=== PATIENT | male | born 1970 | race African-American/Black ===

== ENCOUNTER 2022-12-14 18:56 | Emergency (ER) | payer OTHER, SELFPAY ==
[2022-12-14 19:07] VITALS: BP 131/93; PULSE 88; RESP 18; TEMP 37; O2SAT 98; BMI 32.0
--- NOTE | 2022-12-14 19:12 | ED.GENADULT ---
HPI - General Adult General Chief complaint: Wound/Laceration Stated complaint: finger lac while cooking Time Seen by Provider: 12/14/22 22:37 Source: patient Mode of arrival: ambulatory Limitations: no limitations History of Present Illness HPI narrative: 52-year-old male who presents emergency department for evaluation of laceration to the tip of his left 5th finger. Patient states that he was cutting lettuce when he actually slice the tip of his left pinky finger. Patient was able to control the bleeding at home and came to the emergency department for evaluation. He does not know when his last tetanus shot was given but he believes that it was more than 10 years ago. Related Data Allergies Allergy/AdvReac Type Severity Reaction Status Date / Time No Known Allergies Allergy Verified 12/14/22 22:43 Review of Systems Review of Systems: Yes all other systems are reviewed and are negative [facility] Past Medical History Attestation statement: The following information was validated with the patient. [facility] Narrative: Past medical history: None. Social history: Patient is . 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 Denies tobacco, alcohol and drug use. Social History Social History Alcohol intake: current Alcohol intake frequency: a few times a week Alcohol type: beer Smoked in Last 30 Days: Yes Use of substances other than those prescribed or required for medical reasons: No Advance Directives: No Advance Directives Information Provided: No Physical Exam ED Vital Signs: Vital Signs - 24 hr 12/14/22 19:07 12/14/22 22:00 Temperature 98.6 F 97.9 F Pulse Rate 88 80 Respiratory Rate 18 16 Blood Pressure 131/93 H 128/88 Pulse Oximetry 98 100 Oxygen Delivery Method Room Air BMI result Body Mass Index 32.0 Elevated blood pressure General very pleasant and cooperative male patient, no distress Right hand evaluation: Patient has a 2.5 cm C-shaped laceration to the tip of his left 5th finger Course Course Course Narrative: RME: 52 yold male presents to the ED for left finger laceration while cooking. patinet denies any other symptoms or trauma. Medications Administered Discontinued Medications Generic Name Dose Route Start Last Admin Trade Name Freq PRN Reason Stop Dose Admin Bacitracin 1 appl 12/14/22 23:33 12/14/22 23:46 Bacitracin Oint 0.9 Gm Packet TOPICAL 12/14/22 23:34 1 appl ONCE ONE Administration Protocol Diphtheria/Tetanus/Acell Pertussis 0.5 ml 12/14/22 22:43 12/14/22 22:48 Diphth,Pertus(Acell),Tet Adult 0.5 Ml Syringe IM 12/14/22 22:44 0.5 ml .ONCE ONE Administration Lidocaine HCl 5 ml 12/14/22 22:43 12/14/22 22:48 Lidocaine Hcl 1 % Mpf 5 Ml Vial INFILTRATI 12/14/22 22:44 5 ml ONCE STA Administration Lidocaine HCl 5 ml 12/14/22 22:43 12/14/22 22:48 Lidocaine Hcl 1 % Mpf 5 Ml Vial INFILTRATI 12/14/22 22:44 5 ml ONCE ONE Administration Procedures Procedure Narrative Procedure Narrative: 2.5 cm C-shaped, full skin thickness laceration to the tip of the left 5th finger. I did describe the digital block and laceration repair procedure to the patient any did give me informed verbal consent to proceed. The patient's left 5th finger was prepped with Betadine then a digital block with 5 cc of 1% lidocaine was performed. Patient needed a repeat digital block with 5 cc of 1% lidocaine to achieve sufficient anesthesia. The wound was then irrigated with normal saline 500 cc. I explored the wound and no foreign bodies found in the wound the best my ability. The skin was undermined using scissors and the wound was closed in 1 layer using 5.0 nylon sutures x6 sutures. The wound was then covered with bacitracin and a non stick dressing was held in place with Kerlix gauze. Patient tolerated the procedure well. Medical Decision Making Medical Decision Making [facility] Narrative: 52-year-old male who presents emergency department for evaluation of 2.5 cm C-shaped, full skin thickness laceration to the tip of the left 5th finger requiring suture repair. Left 5th finger was prepped with Betadine anesthetized with digital block 5 cc of 1% lidocaine, patient then require repeat digital block with another 5 cc of 1% lidocaine in order to achieve sufficient anesthesia. It was your gated with normal saline 500 cc, explored, no foreign body seen, closed in 1 layer with 5 point nylon sutures x6 sutures. Patient tolerated the procedure well pain. He was given printed and verbal instructions, stitches need to be removed in 7-10 days. She was also given a Tdap vaccination. Differential Diagnosis Differential diagnosis includes but is not limited to laceration, vascular compromise Discharge Plan Discharge Clinical Impression: Laceration of finger of left hand, Need for Tdap vaccination Patient Disposition: Home, Self-Care Instructions: Finger Laceration (ED) Additional Instructions: Your finger was fixed with 6 interrupted stitches The stitches need to stay in for 7-10 days. Apply bacitracin twice a day until the stitches are removed. Watch for signs of infection which would include redness, swelling, increased pain, drainage of pus from the wound, red streaks going down the finger and up the arm, fever or chills. Your stitches can be removed by your doctor, in urgent care clinic or the emergency department. Do not remove them yourself. You received a Tdap (tetanus, diphtheria, Pertussin) vaccination. This is good for 5 years against any contaminated laceration , you will need a booster shot between 6 and 10 year for any contaminated laceration Follow-up with your doctor in 2 days. Please return to the emergency department if your symptoms get worse or if you develop any symptoms that are concerning to you. Interventions: ED Discharge Assessment Last Done: 12/14/22 23:46 Discharge Date/Time: 12/14/22 23:46
[2022-12-14 22:00] VITALS: BP 128/88; PULSE 80; RESP 16; TEMP 36.6; O2SAT 100
== END 2022-12-14 23:46 | disposition home or self-care (01) ==
PROVIDERS: Emergency Provider Emergency Medicine Emergency Medical Services
DX: S61.217A Laceration without foreign body of left little finger without damage to nail, initial encounter (principal); W26.0XXA Contact with knife, initial encounter; Y93.9 Activity, unspecified; Y92.9 Unspecified place or not applicable; Y99.9 Unspecified external cause status; Z79.899 Other long term (current) drug therapy; Z23 Encounter for immunization
CPT/HCPCS: 12041; 90471; 90715; 99284

== ENCOUNTER 2023-06-10 11:24 | Emergency (ER) | payer OTHER, SELFPAY ==
[2023-06-10 11:33] VITALS: BP 124/79; PULSE 82; RESP 20; TEMP 36.2; O2SAT 99; BMI 31.2
--- NOTE | 2023-06-10 11:33 | ED.UPPEXIN ---
HPI - Extremity Injury (Upper) General Chief Complaint: Extremity Injury, Upper Stated Complaint: Shoulder injury 06/05 Time Seen by Provider: 06/10/23 12:11 Source: patient Mode of arrival: ambulatory Limitations: no limitations History of Present Illness HPI narrative: 52-year-old male presents with complaints of right-sided neck and shoulder pain that started on Thursday, 4 days ago status post heavy lifting things at home/work. Patient reports at times he gets right upper extremity numbness and tingling however not always. Pain precipitated by movement and lifting better at rest. Reports that does not seem to be getting better on its own. Denies fevers, chills, headache vision changes, dizziness, weakness, chest pain, shortness of breath, visual disturbances Related Data Previous Rx's Medication Instructions Recorded cyclobenzaprine 10 mg tablet 10 mg PO BEDTIME PRN muscle spasm 06/10/23 #7 tabs ketorolac 10 mg tablet 10 mg PO TID PRN pain 5 days #15 06/10/23 tabs lidocaine 5 % topical patch 1 patch topical DAILY PRN pain #15 06/10/23 ea Allergies Allergy/AdvReac Type Severity Reaction Status Date / Time No Known Allergies Allergy Verified 06/10/23 11:35 Review of Systems Review of Systems: Constitutional : No Weight loss, No Fever, No Chills, No Fatigue, No Malaise ENT/Mouth : No sore throat, No Rhinorrhea Eyes: No Eye Pain, No Swelling, No Redness Cardiovascular : No Chest Pain, No SOB, No Dyspnea on Exertion, No Orthopnea, No Edema, No Palpitations Respiratory : No Cough, No Sputum, No Wheezing Gastrointestinal : No Nausea, No Vomiting, No Diarrhea, No Constipation, No abdominal Pain, No Hematochezia, No Melena Genitourinary : No Dysuria, No Urinary Frequency, No Hematuria, Musculoskeletal : + joint pain, No Myalgias, No Joint Swelling Skin : No Skin Lesions, No rash Neuro : No Weakness, No Numbness, No Dizziness, No Headache Psych : No Anxiety/Panic, No Depression All other systems reviewed and are negative Yes all other systems are reviewed and are negative [facility] Past Medical History Attestation statement: The following information was validated with the patient. Source: old records reviewed and nursing notes reviewed Onset Date is defined in the Problem List Problems that require an onset date and time if occurred within 24 hrs of arrival to the ED Aortic Dissection and Rupture; Neurologic impairment; Cardiopulmonary Arrest; Endotracheal Intubation; Insertion or Replacement of Mechanical Circulatory Assist Device Social History Social History Alcohol intake: current Alcohol intake frequency: a few times a week Alcohol type: beer Advance Directives: No Advance Directives Information Provided: No Physical Exam Vital Signs: Vital Signs: Last Vital Signs Temp 97.2 F 06/10/23 11:33 Pulse 82 06/10/23 11:33 Resp 20 06/10/23 11:33 BP 124/79 06/10/23 11:33 Pulse Ox 99 06/10/23 11:33 O2 Del Method Room Air 06/10/23 11:33 BMI result Body Mass Index 31.2 vss Appearance: Alert.? Oriented X3.? No acute distress.? Head: Normocephalic, atraumatic, no step-offs or deformities Eyes: Pupils equal, round and reactive to light.? Neck: + R sided cervical paraspinous muscle spasms. & r trap tenderness CVS: Normal heart rate and rhythm.? Pulses normal.? Respiratory: No respiratory distress.? Breath sounds normal.? Abdomen: Soft and nontender.? Skin: Skin warm and dry.? Normal skin color.? Normal skin turgor.? Extremities: No lower extremity edema.? No calf ttp. 5/5 strength to bilateral upper and lower extremities 2+ radial pulses. No wrist drop. Normal sensation distally. Cap refil < 2 seconds equal anad b/ to UE. Normal hand nuclear medical technologist. No UE clumsiness b/l. Neuro: Oriented X 3.? No motor deficit.? No sensory deficit. CN 2-12 intact Course Course Course Narrative: RME: 52 yo M w/PMHx DM, HLD presenting to the ED c/o R sided neck/ shoulder pain s/p moving heavy things on Fri with assoc RUE tingling. denies CP/SOB +R cervical paraspinal /trap and R shoulder ttp. NV intact EKG, XRs ordered Full HPI, ROS and PE to be performed by primary ED provider. Reevaluation(s) Reevaluation #1: Normal right shoulder x-ray. Patient to be discharged home with Toradol Lidoderm patch [place] a follow-up. Educated patient on diagnosis and treatment plan, answered all question, patient verbalizes understanding. At this time patient will be discharged home, advised to return with new or worsening symptoms. Educated on worrisome signs and symptoms and when to return. At this time I feel comfortable discharge home. Time: 12:32 Medical Decision Making Medical Decision Making [facility] Narrative: 52-year-old male presents with right-sided neck pain, shoulder pain status post heavy lifting of for the past 4 days Physical exam significant for 5/5 strength to bilateral upper and lower extremities 2+ radial pulses. No wrist drop. Normal sensation distally. Cap refil < 2 seconds equal anad b/ to UE. Normal hand nuclear medical technologist. No UE clumsiness b/l. Cervical right-sided paraspinous muscle tenderness on palpation & r trap tenderness This is likely a cervical / trap muscle spasm with right shoulder sprain or strain/muscle spasm as well. Unlikely neurovascular compromise, threat to [place], cervical myelopathy, cord compression, venous or arterial occlusion.. Unlikely intracranial hemorrhage, stroke. Unlikely atypical presentation of ACS Plan Toradol, Lidoderm. X-ray ordered Differential Diagnosis Differential Diagnoses: The differential diagnosis associated with the presentation includes This is likely a cervical / trap muscle spasm with right shoulder sprain or strain/muscle spasm as well. Unlikely neurovascular compromise, threat to [place], cervical myelopathy, cord compression, venous or arterial occlusion.. Unlikely intracranial hemorrhage, stroke. Unlikely atypical presentation of ACS Admission/Observation Consideration of admission/observation: Escalation of care including admission/observation considered Independent Interpretation I performed an independent interpretation of an: Plain X-Ray (R/XR shoulder RT min 2V IMPRESSION: Normal right shoulder.) Radiology Impression Discussion of test interpretation with radiology: I have reviewed the radiologist's reading. Critical Care Time Critical Care Time Critical Care Time: No Discharge Plan Discharge Clinical Impression: Neck pain, Pain in right shoulder, Trapezius muscle spasm Patient Disposition: Home, Self-Care Instructions: Shoulder Pain (ED), Acute Neck Pain (ED) Additional Instructions: Take your medications as prescribed. If you were prescribed antibiotics today, it is important that you take your medication to their entirety, do not skip any doses, do not finish them early. Follow-up with your primary care provider this week. Return to the emergency department with new or worsening symptoms. Such as fevers, chills, chest pain, shortness of breath, nausea, vomiting, dizziness, headache, vision changes, lethargy In case of emergency call 911 Toradol has been sent to your pharmacy, you tolerated this well in the department. Please take this as prescribed do not take this with ibuprofen, or other NSAIDs, do not mix this with alcohol. Side effects of this medication including increased risk for bleeding and possible kidney injury. Prescriptions: New ketorolac 10 mg tablet 10 mg PO TID PRN (Reason: pain) 5 Days Qty: 15 0RF lidocaine 5 % adhesive patch,medicated 1 patch topical DAILY PRN (Reason: pain) Qty: 15 0RF Rx Instructions: leave on most painful area for up to 12 hrs cyclobenzaprine 10 mg tablet 10 mg PO BEDTIME PRN (Reason: muscle spasm) Qty: 7 0RF Referrals: ED Physician,Generic [Physician] - 2 days Stand Alone Forms: Work/School Release
--- NOTE | 2023-06-10 12:54 | PC.NURSE ---
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 pt medicated per order and to be discharged.
== END 2023-06-10 12:56 | disposition home or self-care (01) ==
PROVIDERS: Emergency Provider Emergency Medicine
DX: M54.2 Cervicalgia (principal); M25.511 Pain in right shoulder; M62.830 Muscle spasm of back
CPT/HCPCS: 73030; 93005; 96372; 99283; 99284; J1885

== ENCOUNTER → 2023-06-10 11:34 | Outpatient (BNV) | payer SELFPAY | PROVIDERS: Emergency Provider Emergency Medicine; Visit Provider Internal Medicine Cardiovascular Disease | DX: R20.2 Paresthesia of skin (principal); M25.511 Pain in right shoulder | CPT/HCPCS: 93010 ==

== ENCOUNTER 2023-09-09 14:45 | Outpatient (AMB) | payer OTHER, SELFPAY ==
[2023-09-09 14:56] VITALS: BP 128/80; PULSE 92; O2SAT 99; BMI 29.8
--- NOTE | 2023-09-09 14:56 | A.OFFPC_ITS ---
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 Shefali Cedeno/Russ GILMORE Last office visit/CPE: > 1 yr Acute issue(s): Right?shoulder?pain History?of?diabetes - A1c today is 12.0% PMHx:??Diabetes, Tuburculosis - treated 1993. SurgHx: L great toe, L shoulder SLAP tear repair. FHx: Mom: DM Dad: DM, CAD & [place] w stents. SocHx: Quit cigs 10 yrs ago. Vaping. EtOH: 2 beers a day. No drugs PFSH Medical History (Updated 09/09/23 @ 15:51 by Ernie Rosenthal) Diabetes High cholesterol Tuberculosis Surgical History (Updated 09/09/23 @ 15:07 by Ella Fuller CMA) History of toe surgery H/O shoulder surgery Family History (Updated 09/09/23 @ 15:14 by Ella Fuller CMA) Father High blood pressure Arterial stent thrombosis Mother Leaky heart valve High blood pressure Social History Housing: House Alcohol intake: current Alcohol intake frequency: a few times a week Alcohol type: beer Patient Tobacco Use Status: Former Tobacco user Quit Date: quit over 10 years ago. 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 1. Little interest or pleasure in doing things: not at all 2. Feeling down, depressed, or hopeless: not at all 3. Trouble falling or staying asleep, or sleeping too much: not at all 4. Feeling tired or having little energy: not at all 5. Poor appetite or overeating: not at all 6. Feeling bad about yourself - or that you are a failure or have let yourself or your family down: not at all 7. Trouble concentrating on things, such as reading the newspaper or watching television: not at all 8. Moving or speaking so slowly that other people could have noticed. Or the opposite - being so fidgety or restless that you have been moving around a lot more than usual: not at all 9. Thoughts that you would be better off or of hurting yourself in some way: not at all Total score: 0 Depression Screening Interpretation: Negative Depression Screening Done: Yes [id number] - PHQ-9 Billing: Yes Source: Developed by Drs. Yang Greenwood, Belkys Lorenzo, Agustín Sheikh and colleagues, with an educational saurabh from [employer]. Thrive Questionnaire Date Thrive assessed: 09/09/23 I am a: Patient What is your living situation today?: I have a steady place to live Within the past 12 months, did the food you bought not last and you didn't have the money to get more?: Never true Within the past 12 months, did you worry whether your food would run out before you got money to buy more?: Never true Do you have trouble paying for medicines?: No Do you have trouble getting transportation to medical appointments?: No Do you have trouble paying your heating and electricity bill?: No Do you have trouble taking care of your child, family member or friend?: No Do you have trouble with day-to-day activities such as bathing, preparing meals, shopping, managing finances, etc.?: No Are you currently unemployed and looking for a job?: No Are you interested in more education?: No THRIVE Score: 0 AUDIT C Alcohol Use Questionnaire (AUDIT-C) 1. How often do you have a drink containing alcohol?: 4 or more times a week 2. How many drinks containing alcohol do you have on a typical day when you are drinking?: 1 or 2 3. How often do you have six or more drinks on one occasion?: Never Total Score: 4 ESEQUIEL-7 AMB Questionnaire ESEQUIEL-7 Date ESEQUIEL - 7 assessed: 09/09/23 Feeling nervous, anxious, or on edge: 0 = Not at all Not being able to stop or control worryin = Not at all Worrying too much about different things: 0 = Not at all Trouble relaxin = Not at all Being so restless that it is hard to sit still: 0 = Not at all Becoming easily annoyed or irritable: 3 = Nearly every day Feeling afraid as if something awful might happen: 0 = Not at all Total ESEQUIEL-7 score (0-4 normal; 5-9 mild; 10-14 moderate; 15-21 severe): 3 Source: Developed by Drs. Yang Greenwood, Belkys Lorenzo, Agustín Sheikh and colleagues, with an educational saurabh from [employer]. ESEQUIEL-7 Assessment Billing ESEQUIEL-7 Assessment Tool: ESEQUIEL-7 Assessment 41478 Review of Systems Const Denies chills, Denies fatigue, Denies fever(s), Denies headache(s) and Denies weakness ENT Denies dizziness and Denies headache(s) Card Denies chest pain, Denies lightheadedness, Denies dyspnea and Denies other (Palpitations) Resp Denies cough, Denies dyspnea, Denies wheezing and Denies other ( shortness of breath) Musc Denies numbness and Denies tingling Neuro Denies dizziness, Denies headache(s), Denies numbness, Denies tingling, Denies paresthesias and Denies weakness Psych Denies anxiety and Denies depression Endo Denies fatigue Aller/Immun Denies wheezing Physical exam (Primary Care) Vital Signs: Last Vital Signs Pulse 92 09/09/23 14:56 BP 128/80 09/09/23 14:56 Pulse Ox 99 09/09/23 14:56 BMI result Body Mass Index 29.8 Tobacco/Smoking Status: Tobacco use Status Tobacco use date assessed 09/09/23 09/09/23 15:23 Patient Tobacco Use Status Former Tobacco user 09/09/23 15:23 e-Cigarette/Vaping Use Currently Using 09/09/23 15:23 PHQ-9: PHQ-9 Score PHQ-9: Total score 0 09/09/23 15:23 Depression Screening Interpretation: Negative Thrive Assessment: Date of Thrive Assessment Date Thrive assessed 09/09/23 09/09/23 15:23 Const General: no acute distress and well developed Nutritional Appearance: well nourished Orientation/consciousness: patient oriented x3 HENMT Head: Yes normocephalic and Yes atraumatic Eyes General: appearance normal, both eyes and all related structures Pupils: Equal, round and reactive pupils present EOM: EOMs intact bilaterally Resp Effort & Inspection: normal respiratory effort Auscultation: clear to auscultation bilaterally Cardio Rate: regular rate Rhythm: regular rhythm Heart sounds: S1 normal heart sound present, S2 normal heart sound present, no gallops, no murmurs and no rubs Neuro General: patient oriented x3 and gait normal Cranial nerves: Yes Equal, round and reactive pupils present Psych Affect: normal affect Results AMB Hemoglobin A1c AMB Hemoglobin A1c 12 % Last Edit by Ella Fuller CMA on 09/09/23 15:39 Assessment and Plan Assessment & Plan (1) Pain in right shoulder: Code(s): M25.511 - Pain in right shoulder Plan: Use?naproxen,?ice/heat Physical?therapy (2) History of tuberculosis: Code(s): Z86.11 - Personal history of tuberculosis Plan: Treated?in?1993 Will?follow?with?annual?chest?x-rays (3) Diabetes: Code(s): E11.9 - Type 2 diabetes mellitus without complications Plan: Uncontrolled?diabetes.??A1c?is?12.0%. Goal?is?less?than?7.0% Start?Ozempic Restart?glipizide Work?on?diet?low?in?sugars?and?starches (4) Laboratory exam ordered as part of routine general medical examination: Code(s): Z00.00 - Encounter for general adult medical examination without abnormal findings Plan: Check?labs Orders: Orders Comprehensive [place]. Panel Fast Today Z00.00 - Encounter for general adult medical examination without abnormal findings Prostate Specific Antigen Scr Today Z12.5 - Encounter for screening for malignant neoplasm of prostate TSH reflex Free T4 Today Z00.00 - Encounter for general adult medical examination without abnormal findings UA and rflx microscopic Today Z00.00 - Encounter for general adult medical examination without abnormal findings PT Evaluation and Treatment Today M25.511 - Pain in right shoulder Lipid Panel Today Z00.00 - Encounter for general adult medical examination without abnormal findings Microalbumin, Random (w Creat) Today I10 - Essential (primary) hypertension AMB Hemoglobin A1c Today Z13.9 - Encounter for screening, unspecified Referrals Nurse Navigator Referral E11.9 - Type 2 diabetes mellitus without complications Medications: New naproxen 500 mg PO BID 30 days PRN 60 tabs 0RF pain glipizide ER 5 mg PO DAILY 30 tabs 2RF 30 days E11.9 - Type 2 diabetes mellitus without complications semaglutide (Ozempic) 0.5 mg (0.736 mL) subcut QWEEK 2.944 mL 2RF 28 days E11.9 - Type 2 diabetes mellitus without complications blood-glucose meter (FreeStyle Lite Meter kit) DX: E11.9, test blood sugar 2 times a day, duration 999 days 1 ea 0RF E11.9 - Type 2 diabetes mellitus without complications blood sugar diagnostic (FreeStyle Lite Strips) DX: E11.9, test blood sugar 2 times a day, 90 days 200 ea 4RF E11.9 - Type 2 diabetes mellitus without complications lancets (FreeStyle Lancets) T test Blood sugar twice a day As directed, 90 days 200 ea 4RF DX: E11.9, test blood sugar 4 times a day, 90 day E11.9 - Type 2 diabetes mellitus without complications Coding Level of Care Code Est Pt Prev Care 40-64y(93612) Diagnoses Pain in right shoulder M25.511 History of tuberculosis Z86.11 Diabetes E11.9 Laboratory exam ordered as part of routine general medical examination Z00.00 Additional Codes ESEQUIEL-7 Assessment Billing - ESEQUIEL-7 Assessment Tool: ESEQUIEL-7 Assessment [id number] ([id number])
== END 2023-09-09 16:04 | disposition home or self-care (01) ==
PROVIDERS: PCP Family Medicine; Visit Provider Family Medicine
DX: Z00.00 Encounter for general adult medical examination without abnormal findings (principal); E11.9 Type 2 diabetes mellitus without complications; M25.511 Pain in right shoulder; Z86.11 Personal history of tuberculosis
CPT/HCPCS: 83036; 99396

== ENCOUNTER 2023-12-23 13:38 | Outpatient (AMB) | payer OTHER, SELFPAY ==
--- NOTE | 2023-12-23 13:51 | MHC.PC.OV ---
Vital Signs 12/23/23 13:53 Height 6 ft Weight 213 lb 8 oz BMI 29.0 BP 144/80 H Blood Pressure Location Rt brachial Position Sitting Respiration 14 Pulse 88 Pulse Source Pulse Oximeter Temp 97.8 F Temp Source Temporal Artery Scan Pulse Oximetry (%) 99 Oxygen Delivery Method Room Air Intake Visit Reasons: CPE with f/u labs and health maint. Intake Note: Patient states that he has been having muscle spasms in his shoulders since thursday. Patient would like refill on Naproxen. 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 Accompanied by: Spouse Allergies No Known Allergies Allergy (Verified 12/23/23 13:57) Medication List - Last Reconciled 12/23/23 by Doyle Muir MD blood sugar diagnostic (FreeStyle Lite Strips) DX: E11.9, test blood sugar 2 times a day, 90 days blood-glucose meter (FreeStyle Lite Meter kit) DX: E11.9, test blood sugar 2 times a day, duration 999 days dulaglutide (Trulicity) 0.75 mg (0.5 mL) subcut QWEEK 28 days glipizide ER 5 mg PO DAILY 90 days lancets (FreeStyle Lancets) T test Blood sugar twice a day As directed, 90 days metformin 1,000 mg (2 x 500 mg) PO BIDWMEAL 90 days naproxen 500 mg PO BID PRN 30 days rosuvastatin 40 mg PO DAILY 90 days Tobacco use date assessed: 12/23/23 Dental Screening Dental Screen Date: 12/23/23 Did you have a dental visit in the last 12 months?: No Did you have a dental problem in the last 6 months where you did not have access to dental care?: No Was dental information given to patient?: Yes HPI CPE with f/u labs and health maint. HPI Details 53 y/o male presents for a CPE with f/u labs and health maintenance. No recent labs to review. Last A1c 09/09/23 12.0%. Had started Ozempic and resumed his glipizide. A1c today 12/23/23 7.9%. Pt reports ongoing R shoulder pain. 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 1. Little interest or pleasure in doing things: not at all 2. Feeling down, depressed, or hopeless: not at all 3. Trouble falling or staying asleep, or sleeping too much: not at all 4. Feeling tired or having little energy: not at all 5. Poor appetite or overeating: not at all 6. Feeling bad about yourself - or that you are a failure or have let yourself or your family down: not at all 7. Trouble concentrating on things, such as reading the newspaper or watching television: not at all 8. Moving or speaking so slowly that other people could have noticed. Or the opposite - being so fidgety or restless that you have been moving around a lot more than usual: not at all 9. Thoughts that you would be better off or of hurting yourself in some way: not at all Total score: 0 Depression Screening Interpretation: Negative Depression Screening Done: Yes 98690 - PHQ-9 Billing: Yes Source: Developed by Drs. Yang Greenwood, Belkys Lorenzo, Agustín Sheikh and colleagues, with an educational saurabh from [employer]. Thrive Questionnaire Date Thrive assessed: 09/09/23 AUDIT C Alcohol Use Questionnaire (AUDIT-C) 1. How often do you have a drink containing alcohol?: 4 or more times a week 2. How many drinks containing alcohol do you have on a typical day when you are drinking?: 1 or 2 3. How often do you have six or more drinks on one occasion?: Never Total Score: 4 ESEQUIEL-7 AMB Questionnaire ESEQUIEL-7 Date ESEQUIEL - 7 assessed: 12/23/23 Feeling nervous, anxious, or on edge: 0 = Not at all Not being able to stop or control worryin = Not at all Worrying too much about different things: 0 = Not at all Trouble relaxin = Not at all Being so restless that it is hard to sit still: 0 = Not at all Becoming easily annoyed or irritable: 3 = Nearly every day Feeling afraid as if something awful might happen: 0 = Not at all Total ESEQUIEL-7 score (0-4 normal; 5-9 mild; 10-14 moderate; 15-21 severe): 3 Source: Developed by Drs. Yang Greenwood, Belkys Lorenzo, Agustín Sheikh and colleagues, with an educational saurabh from [employer]. ESEQUIEL-7 Assessment Billing ESEQUIEL-7 Assessment Tool: ESEQUIEL-7 Assessment 98835 Review of Systems Const Denies chills, Denies fatigue, Denies fever(s), Denies headache(s) and Denies weakness Eyes Denies change in vision ENT Denies dizziness, Denies headache(s), Denies hearing loss, Denies nasal congestion, Denies sinus pain, Denies sinus pressure and Denies sore throat Card Denies chest pain, Denies lightheadedness, Denies dyspnea and Denies other (palpitations) Resp Denies cough, Denies dyspnea and Denies wheezing GI Denies abdominal pain, Denies melena, Denies hematochezia, Denies change in bowel habits, Denies dyspepsia and Denies nausea Denies hematuria and Denies dysuria Musc Details: R shoulder pain Denies abnormal gait, Denies myalgias, Denies arthralgias, Denies numbness and Denies tingling Skin/Breast Denies rash, Denies unusual bruising and Denies wounds Neuro Denies abnormal gait, Denies dizziness, Denies headache(s), Denies memory loss, Denies numbness, Denies Sensory deficit (Neuro), Denies tingling and Denies weakness Psych Denies anxiety, Denies depression and Denies memory loss Endo Denies cold intolerance, Denies fatigue, Denies heat intolerance, Denies polydipsia and Denies polyuria Kris/Lymph Denies easy bleeding and Denies easy bruising Aller/Immun Denies wheezing Physical exam (Primary Care) Vital Signs: Last Vital Signs Temp 97.8 F 12/23/23 13:53 Pulse 88 12/23/23 13:53 Resp 14 12/23/23 13:53 BP 144/80 H 12/23/23 13:53 Pulse Ox 99 12/23/23 13:53 Oxygen Delivery Method Room Air 12/23/23 13:53 BMI result Body Mass Index 29.0 Tobacco/Smoking Status: Tobacco use Status Tobacco use date assessed 12/23/23 12/23/23 13:59 Patient Tobacco Use Status Former Tobacco user 12/23/23 13:53 e-Cigarette/Vaping Use Currently Using 12/23/23 13:53 PHQ-9: PHQ-9 Score PHQ-9: Total score 0 12/23/23 14:02 Depression Screening Interpretation: Negative Thrive Assessment: Date of Thrive Assessment Date Thrive assessed 09/09/23 12/23/23 13:53 Const General: no acute distress, well developed, alert and awake Nutritional Appearance: well nourished Orientation/consciousness: patient oriented x3 HENMT Head: Yes normocephalic and Yes atraumatic Ears: hearing grossly normal bilaterally and TM's normal bilaterally General nose exam: Normal external nose present and Normal nares present Mouth: Normal oral and palatal mucosa present and moist mucous membranes Teeth and gingiva: dentition normal Throat: Yes posterior oropharynx normal Eyes General: appearance normal, both eyes and all related structures Pupils: Equal, round and reactive pupils present and Pupil accommodation reflex normal EOM: EOMs intact bilaterally Neck Neck: Yes normal visual inspection, Yes no lymphadenopathy and Yes trachea midline Thyroid: Thyroid normal Carotids: no bruits Lymphatic: no lymphadenopathy noted Chest Chest palpation & inspection: normal inspection of the chest Resp Effort & Inspection: normal respiratory effort Auscultation: clear to auscultation bilaterally Cardio Rate: regular rate Rhythm: regular rhythm Heart sounds: S1 normal heart sound present, S2 normal heart sound present, no gallops, no murmurs and no rubs Bruits: no abdominal aortic bruits and no carotid bruits GI Palpation (GI): No Abdominal aortic bruit present, Soft to palpation, nontender, No hepatosplenomegaly present and No Rebound tenderness present Auscultation: normal bowel sounds General: Yes no CVA tenderness Back/Spine/Pelvis Back: no CVA tenderness Cervical Spine: cervical ROM normal and No Cervical spine tenderness Thoracic/Lumbar Spine: thoraco-lumbar ROM normal, No pain with thoraco-lumbar ROM, No thoracic spinal tenderness and No lumbar spinal tenderness Skin Lesions: no lesions Rashes: no rashes Trauma: no lacerations or abrasions Wounds: no wounds Nails: normal Neuro General: patient oriented x3 Cranial nerves: Yes Equal, round and reactive pupils present Cognition (Neuro): normal cognition Gait exam (Neuro): Normal gait present Motor exam (neuro): 5/5 motor strength present throughout Sensory Exam: No Sensory deficit (Neuro) Deep tendon reflexes (DTR's): Right patellar reflex intensity grade: 2+ and Left patellar reflex intensity grade: 2+ Extrem General: Yes normal to inspection and No edema Psych Appearance: grossly normal Affect: normal affect Attitude: cooperative Thought process: Normal thought process present Results AMB Hemoglobin A1c AMB Hemoglobin A1c 7.9 % Last Edit by HOPE Davey on 12/23/23 14:09 Results Reviewed Results Reviewed: Laboratory Last Values Hgb A1c (Clinic) 7.9 % (4.0-6.0) H 12/23/23 14:04 Assessment and Plan Assessment & Plan (1) Adult general medical exam: Code(s): Z00.00 - Encounter for general adult medical examination without abnormal findings Plan: 53-year-old?male?presents?for?complete?physical?exam Encouraged?healthy?diet?with?active?lifestyle?and?plenty?of?exercise (2) Diabetes: Code(s): E11.9 - Type 2 diabetes mellitus without complications Plan: A1c?at?prior?visit?was?12.0%?and?I?continued?metformin,?resumed?glipizide?and?added?Trulicity. He?is?tolerating?these?medications. A1c?today?is?7.9%?which?is?a?significant?improvement. Encouraged?ongoing?lifestyle?changes Will?increase?Trulicity?from?0.75?mg?weekly?to?1.5?mg?weekly.??No?other?medication?changes?today. He?has?an?mandolin repairer?and?was?seen?earlier?this?year. (3) Pain in right shoulder: Code(s): M25.511 - Pain in right shoulder Plan: Bilateral?posterior?shoulder?pain,?right?worse?than?left Likely?overuse?disorder?due?to?heavy?lifting?at?work He?can?use?naproxen,?ice/heat?and?gentle?stretching He?will?let?me?know?if?this?is?not?improving?and?I?will?refer?him?for?physical?therapy (4) Screening for colon cancer: Code(s): Z12.11 - Encounter for screening for malignant neoplasm of colon Plan: Referred?to?GI (5) Screening for prostate cancer: Code(s): Z12.5 - Encounter for screening for malignant neoplasm of prostate Plan: PSA?level?is?ordered (6) Swelling of lower extremity: Code(s): M79.89 - Other specified soft tissue disorders Plan: No?pain?and?normal?sensation?at?bilateral?toes Likely?some?venous?insufficiency However,?patient?has?diabetes Referred?to?Podiatry Orders: Orders AMB Hemoglobin A1c Today E11.9 - Type 2 diabetes mellitus without complications Referrals Podiatry Referral E11.9 - Type 2 diabetes mellitus without complications, M79.89 - Other specified soft tissue disorders Gastroenterology Referral Z12.11 - Encounter for screening for malignant neoplasm of colon Medications: Changed From dulaglutide (Trulicity) 0.75 mg (0.5 mL) subcut QWEEK 28 days 2 mL 3RF To dulaglutide 1.5 mg (0.5 mL) subcut QWEEK 28 days 2 mL 3RF Refilled naproxen 500 mg PO BID 30 days PRN 60 tabs 0RF pain Coding Level of Care Code Est Pt Level 3 (03666) Est Pt Prev Care 40-64y(32778) Diagnoses Adult general medical exam Z00.00 Diabetes E11.9 Pain in right shoulder M25.511 Screening for colon cancer Z12.11 Screening for prostate cancer Z12.5 Swelling of lower extremity M79.89 Additional Codes ESEQUIEL-7 Assessment Billing - ESEQUIEL-7 Assessment Tool: ESEQUIEL-7 Assessment 73141 ([id number])
[2023-12-23 13:53] VITALS: BP 144/80; PULSE 88; RESP 14; TEMP 36.6; O2SAT 99; BMI 29.0
== END 2023-12-23 14:43 | disposition home or self-care (01) ==
PROVIDERS: PCP Family Medicine; Visit Provider Family Medicine
DX: Z00.00 Encounter for general adult medical examination without abnormal findings (principal); E11.9 Type 2 diabetes mellitus without complications; M25.511 Pain in right shoulder; Z12.11 Encounter for screening for malignant neoplasm of colon; Z12.5 Encounter for screening for malignant neoplasm of prostate; M79.89 Other specified soft tissue disorders
CPT/HCPCS: 83036; 99213; 99396

== ENCOUNTER 2024-01-12 12:14 | Outpatient (REF) | payer OTHER, SELFPAY ==
[2024-01-12 14:11] LABS: Appearance Urine Turbid; Color Urine Yellow; Glucose Urine UA Negative (Negative); Leukocyte Esterase Urine Negative (Negative); Nitrite Urine Negative (Negative); PH 5.5 (5.0-9.0); Specific Gravity - Urine >= 1.030 (1.005-1.025); Urine Blood Negative (Negative); Urine Ketones Trace mg/dL (Negative); Urine Protein Trace mg/dL (Neg-Trace)
[2024-01-12 14:31] LABS: Creatinine Urine 314.46 mg/dL; Microalbum/Creatinine Ratio Ur 11.7 ug/mg cr (<30)
[2024-01-12 14:33] LABS: Alanine Aminotransferase 24 U/L (0-40); Albumin Level 4.3 g/dL (3.5-5.0); Alkaline Phosphatase 65 U/L (39-117); Anion Gap 14 (12-20); Aspartate Amino Transferase 22 U/L (5-37); Bilirubin Total 0.2 mg/dL (0.0-1.0); Blood Urea Nitrogen 18 mg/dL (9-16); Calcium 9.5 mg/dL (8.4-10.2); Carbon Dioxide 23 mmol/L (22-29); Chloride 108 mmol/L (96-108); Cholesterol 139 mg/dL (<200); Estimated Glomerular Filt Rate > 60; Glucose Fasting 119 mg/dL (60-99); HDL Cholesterol 34 mg/dL (>40); LDL Cholesterol Calculated 85 mg/dL (<100); Sodium 141 mmol/L (135-145); Total Protein 7.4 g/dL (6.5-8.0); Triglycerides 102 mg/dL (<150)
[2024-01-12 14:40] LABS: Prostate Specific Antigen Scr 0.19 ng/mL (<0.05-4.0)
[2024-01-12 14:41] LABS: TSH reflex Free T4 0.83 uIU/mL (0.32-4.0)
== END 2024-01-12 12:15 | disposition home or self-care (01) ==
LOC: HO.WFDLDS 12:14
PROVIDERS: Visit Provider Family Medicine
DX: Z00.00 Encounter for general adult medical examination without abnormal findings (principal); Z12.5 Encounter for screening for malignant neoplasm of prostate; I10 Essential (primary) hypertension
CPT/HCPCS: 36415; 80053; 80061; 81003; 82043; 82570; 84153; 84443

== ENCOUNTER 2024-01-18 10:19 | Outpatient (AMB) | payer OTHER, SELFPAY ==
--- NOTE | 2024-01-18 10:11 | A.OFFPC_ITS ---
Intake Visit Reasons: f/u CPE-labs via telemedicine Intake Note: CPE lab f/u Allergies No Known Allergies Allergy (Verified 01/18/24 10:11) Tobacco use date assessed: 12/23/23 Dental Screening Dental Screen Date: 12/23/23 HPI f/u CPE-labs via telemedicine HPI Details 53 y/o male presents to f/u labs via tel emedicine. Labs drawn 01/12/24. Reviewed labs with pt. Elevated fasting glucose of 119. Had increased his trulicity last office visit. He denies any issues with the increase. Triglyceriges 102. TC 139. LDL 85. HDL low at 34. He is on rosuvastatin 40mg daily. PSA 0.19. 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 Yang Greenwood, Belkys Lorenzo, Agustín Sheikh and colleagues, with an educational saurabh from [employer]. Review of Systems Const Denies chills, Denies fatigue, Denies fever(s), Denies headache(s) and Denies weakness ENT Denies dizziness and Denies headache(s) Card Denies dyspnea Resp Denies cough, Denies dyspnea, Denies wheezing and Denies other (shortness of breath) Musc Denies numbness and Denies tingling Neuro Denies dizziness, Denies headache(s), Denies numbness, Denies tingling and Denies weakness Psych Denies anxiety and Denies depression Endo Denies fatigue Aller/Immun Denies wheezing Physical exam (Primary Care) Tobacco/Smoking Status: Tobacco use Status Tobacco use date assessed 12/23/23 01/18/24 10:13 Patient Tobacco Use Status Former Tobacco user 01/18/24 10:13 e-Cigarette/Vaping Use Currently Using 01/18/24 10:13 Thrive Assessment: Date of Thrive Assessment Date Thrive assessed 09/09/23 01/18/24 10:13 Telehealth Telehealth Telehealth Platform: Telephone Location of provider rendering services: practice address Location of patient: address on file Patient Identification confirmed using: Name, : Yes Telehealth method: voice only Patient verbally consented to treatment: Yes Patient verbally consented to billing insurance company: Yes Patient informed of any privacy concerns related to visit: Yes Minutes spent on Phone/Video with Pt.: 5 Assessment and Plan Assessment & Plan (1) Diabetes: Code(s): E11.9 - Type 2 diabetes mellitus without complications Plan: Patient?had?a?significant?improvement?in?his?A1c?at?last?office?visit.??A1c?was? 7.9%?which?is?still?above?goal?and?I?increased?his?Trulicity He?is?tolerating?his?diabetes?regimen Continue?current?diabetes?regimen?and?we?will?follow- up?at?his?next?visit?in?March (2) Hyperlipidemia: Code(s): E78.5 - Hyperlipidemia, unspecified Plan: LDL?and?TC?cholesterol?are?controlled?on?rosuvastatin HDL?is?low-see?below (3) Low HDL (under 40): Code(s): E78.6 - Lipoprotein deficiency Plan: Patient?has?an?active?lifestyle?but?is?not?getting?regular?exercise Encouraged?exercise He?has?an?appointment?in?March?and?we?can?follow- up?on?his?lipids?subsequent?to?that?visit (4) Screening for prostate cancer: Code(s): Z12.5 - Encounter for screening for malignant neoplasm of prostate Plan: PSA?was?within?normal?range Continue?annual?screen Coding Level of Care Code Tele Est Pt Level 2 (42809) Diagnoses Diabetes E11.9 Hyperlipidemia E78.5 Low HDL (under 40) E78.6 Screening for prostate cancer Z12.5
== END 2024-01-18 11:19 | disposition home or self-care (01) ==
LOC: HO.HMGFM 10:20
PROVIDERS: PCP Family Medicine; Visit Provider Family Medicine
DX: E11.9 Type 2 diabetes mellitus without complications (principal); E78.5 Hyperlipidemia, unspecified; E78.6 Lipoprotein deficiency; Z12.5 Encounter for screening for malignant neoplasm of prostate
CPT/HCPCS: 99212

== ENCOUNTER 2024-06-16 11:13 | Outpatient (AMB) | payer OTHER, SELFPAY ==
--- NOTE | 2024-06-16 11:30 | A.OFFPC_ITS ---
Vital Signs 06/16/24 11:39 Height 6 ft Weight 231 lb BMI 31.3 BP 123/76 Blood Pressure Location Rt brachial Position Sitting Respiration 6 L Pulse 80 Pulse Source Pulse Oximeter Temp 97.7 F Temp Source Oral Pulse Oximetry (%) 97 Oxygen Delivery Method Room Air Intake Visit Reasons: Diabetes follow-up Intake Note: patient here for diabetes follow up Certified Court/Medical Interpreter Required: No Allergies No Known Allergies Allergy (Verified 06/16/24 11:36) Medication List - Last Reconciled 06/16/24 by Doyle Muir MD blood sugar diagnostic (FreeStyle Lite Strips) DX: E11.9, test blood sugar 2 times a day, 90 days blood-glucose meter (FreeStyle Lite Meter kit) DX: E11.9, test blood sugar 2 times a day, duration 999 days dulaglutide 1.5 mg (0.5 mL) subcut QWEEK 28 days lancets (FreeStyle Lancets) T test Blood sugar twice a day As directed, 90 days metformin 1,000 mg (2 x 500 mg) PO BIDWMEAL 90 days naproxen 500 mg PO BID PRN 30 days rosuvastatin 40 mg PO DAILY 90 days Tobacco use date assessed: 06/16/24 Dental Screening Dental Screen Date: 06/16/24 Did you have a dental visit in the last 12 months?: No Did you have a dental problem in the last 6 months where you did not have access to dental care?: No Was dental information given to patient?: No HPI Diabetes follow-up HPI Details 53 y/o male presents to f/u diabetes. Last A1c 12/23/23 7.9%. He is on glipizide 5mg, dulaglutide 1.5mg, metformin 2000mg. A1c today 06/16/24 8.4%. He notes he could have a better diet. Has complaints of R shoulder pain. He also describes pain/tingling on the back of his neck. HPI Comments History of Present Illness Details Documentation assistance for Doyle Muir MD, was provided by Ernie Rosenthal,? Fugitive Detective on 06/16/2024 at 11:43 AM EST. I, Dr. Muir, have read, observed, and verified documentation. ?? 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 1. Little interest or pleasure in doing things: not at all 2. Feeling down, depressed, or hopeless: not at all 3. Trouble falling or staying asleep, or sleeping too much: not at all 4. Feeling tired or having little energy: not at all 5. Poor appetite or overeating: not at all 6. Feeling bad about yourself - or that you are a failure or have let yourself or your family down: not at all 7. Trouble concentrating on things, such as reading the newspaper or watching television: not at all 8. Moving or speaking so slowly that other people could have noticed. Or the opposite - being so fidgety or restless that you have been moving around a lot more than usual: not at all 9. Thoughts that you would be better off or of hurting yourself in some way: not at all Total score: 0 Source: Developed by Drs. Yang Greenwood, Belkys Lorenzo, Agustín Sheikh and colleagues, with an educational saurabh from [employer]. Thrive Questionnaire Date Thrive assessed: 09/09/23 I am a: Patient What is your living situation today?: I have a steady place to live Within the past 12 months, did the food you bought not last and you didn't have the money to get more?: Never true Within the past 12 months, did you worry whether your food would run out before you got money to buy more?: Never true Do you have trouble paying for medicines?: No Do you have trouble getting transportation to medical appointments?: No Do you have trouble paying your heating and electricity bill?: No Do you have trouble taking care of your child, family member or friend?: No Do you have trouble with day-to-day activities such as bathing, preparing meals, shopping, managing finances, etc.?: No Are you currently unemployed and looking for a job?: No Are you interested in more education?: No Please select the resources that you would like help with: Utilities Currently or been in a relationship where the following occur: No concerns reported THRIVE Score: 0 AUDIT C Alcohol Use Questionnaire (AUDIT-C) 1. How often do you have a drink containing alcohol?: 2-4 times a month 2. How many drinks containing alcohol do you have on a typical day when you are drinking?: 1 or 2 3. How often do you have six or more drinks on one occasion?: Never Total Score: 2 ESEQUIEL-7 AMB Questionnaire ESEQUIEL-7 Date ESEQUIEL - 7 assessed: 12/23/23 Feeling nervous, anxious, or on edge: 0 = Not at all Not being able to stop or control worryin = Not at all Worrying too much about different things: 0 = Not at all Trouble relaxin = Not at all Being so restless that it is hard to sit still: 0 = Not at all Becoming easily annoyed or irritable: 0 = Not at all Feeling afraid as if something awful might happen: 0 = Not at all Total ESEQUIEL-7 score (0-4 normal; 5-9 mild; 10-14 moderate; 15-21 severe): 0 Source: Developed by Drs. Yang Greenwood, Belkys Lorenzo, Agustín Sheikh and colleagues, with an educational saurabh from [employer]. Review of Systems Const Denies chills, Denies fatigue, Denies fever(s), Denies headache(s) and Denies weakness ENT Denies dizziness and Denies headache(s) Card Denies dyspnea Resp Denies cough, Denies dyspnea, Denies wheezing and Denies other (shortness of breath) Musc Denies numbness and Denies tingling Neuro Denies dizziness, Denies headache(s), Denies numbness, Denies tingling and Denies weakness Psych Denies anxiety and Denies depression Endo Denies fatigue Aller/Immun Denies wheezing Physical exam (Primary Care) Vital Signs: Last Vital Signs Temp 97.7 F 06/16/24 11:39 Pulse 80 06/16/24 11:39 Resp 6 L 06/16/24 11:39 BP 123/76 06/16/24 11:39 Pulse Ox 97 06/16/24 11:39 Oxygen Delivery Method Room Air 06/16/24 11:39 BMI result Body Mass Index 31.3 Tobacco/Smoking Status: Tobacco use Status Tobacco use date assessed 06/16/24 06/16/24 11:41 Patient Tobacco Use Status Former Tobacco user 06/16/24 11:32 e-Cigarette/Vaping Use Currently Using 06/16/24 11:32 PHQ-9: PHQ-9 Score PHQ-9: Total score 0 06/16/24 11:35 Thrive Assessment: Date of Thrive Assessment Date Thrive assessed 09/09/23 06/16/24 11:32 Currently or been in a relationship where the following occur: No concerns reported Const General: well developed; No acute distress Nutritional Appearance: well nourished Orientation/consciousness: patient oriented x3 HENMT Head: Yes normocephalic and Yes atraumatic Eyes General: appearance normal, both eyes and all related structures Pupils: Equal, round and reactive pupils present EOM: EOMs intact bilaterally Resp Effort & Inspection: normal respiratory effort Auscultation: clear to auscultation bilaterally Cardio Rate: regular rate Rhythm: regular rhythm Heart sounds: S1 normal heart sound present, S2 normal heart sound present, no gallops, no murmurs and no rubs Neuro General: patient oriented x3 and gait normal Cranial nerves: Yes Equal, round and reactive pupils present Psych Affect: normal affect Results AMB Hemoglobin A1c AMB Hemoglobin A1c 8.4 % Last Edit by Nazanin Cline on 06/16/24 12:05 Coding Level of Care Code Est Pt Level 4 (68110) Diagnoses Diabetes E11.9 Cervical radiculopathy M54.12 Hyperlipidemia E78.5 Assessment & Plan Assessment & Plan (1) Diabetes: Code(s): E11.9 - Type 2 diabetes mellitus without complications Category: Medical Plan: A1c?has?significantly?worsened?and?is?now?at?8.4%.??Goal?is?less?than?7.0% Will?increase?Trulicity?to?3?mg?weekly Continue?metformin?1000?mg?b.i.d. Had?a?long?conversation?about?decreasing?carbohydrates ?in?diet,?particularly?4?slices?of?bread?per?day.??He?will?work?on?this Advised?increasing?exercise Referred?to?nurse?navigator?for?nutrition?and?diabetes?teaching (2) Cervical radiculopathy: Code(s): M54.12 - Radiculopathy, cervical region Category: Medical Plan: Right?cervical?radiculitis affecting?right?shoulder?arm?down?to?hands?and?fingers. Denies?weakness. 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 He?use?naproxen,?ice/heat?and?I?have?referred?him?to?physical?therapy. Checking?x-ray?of?cervical?spine?and?shoulder?and?we?can?review?and?next?visit May?need?referral?to?physiatry?or?Ortho?to?consider?injection?therapy?or?other?i nterventions. (3) Hyperlipidemia: Code(s): E78.5 - Hyperlipidemia, unspecified Category: Medical Plan: And?discussed?with?patient?at?prior?visit?that?lipids?are?not?at?goal. He?has?a?gained?about?18?lb I?encouraged?exercise?and?weight?loss.??Encouraged?diet I?have?asked?him?to?get?his?labs?drawn?fasting?prior?to?next?visit?and?we?review Orders: Orders PT Evaluation and Treatment Today M54.12 - Radiculopathy, cervical region Microalbumin, Random (w Creat) Today E11.9 - Type 2 diabetes mellitus without complications, I10 - Essential (primary) hypertension AMB Hemoglobin A1c Today Z13.9 - Encounter for screening, unspecified XR cervical spine 2V Today M54.12 - Radiculopathy, cervical region XR shoulder RT min 2V Today M25.519 - Pain in unspecified shoulder Lipid Panel Today E78.5 - Hyperlipidemia, unspecified, Z00.00 - Encounter for general adult medical examination without abnormal findings Comprehensive [place]. Panel Fast Today E11.9 - Type 2 diabetes mellitus without complications, Z00.00 - Encounter for general adult medical examination without abnormal findings Referrals Nurse Navigator Referral E11.9 - Type 2 diabetes mellitus without complications Medications: Changed From dulaglutide 1.5 mg (0.5 mL) subcut QWEEK 28 days 2 mL 3RF To dulaglutide 3 mg (0.5 mL) subcut QWEEK 28 days 2 mL 3RF Refilled naproxen 500 mg PO BID 30 days PRN 60 tabs 0RF pain
[2024-06-16 11:39] VITALS: BP 123/76; PULSE 80; RESP 6; TEMP 36.5; O2SAT 97; BMI 31.3
--- OUTSIDE RECORDS SUMMARY | 2024-06-16 11:58 | XMS_ITS | Continuity of Care Document ---
Author Organization Kyrie Masterson [facility] Address [address] [place] [address] Phone Care Team Providers Care Helper Metal Hanging Name Role Phone Unavailable Unavailable Unavailable Advance Directives Directive Yes / No Effective Date File Name No Information Encounters Encounter Description Practice Location Reason(s) For Visit Diagnoses Date Provider Providers Copied on Encounter dali Cabral [facility], [address] [place] [address],[address], [place], [place], [id number], [place] tel:[phone] [facility] No Information No Information Family History Family Member Type Diagnosis Age At Onset No Information Payers Payer name Insurance type Covered alliance party ID Authoriza tion(s) No Information Social History Type Description Quantity Date Captured Comments Sex Male Smoking Status No Information Chief Complaint And Reason For Visit No Information Reason For Referral Reason For Referral No Information History Of Present Illness Encounter Date Complaint History Of Prese nt Illness No Information Functional Status Date Functional Assessmen t No Information Instructions Date Instruction Additional Infor mation No Information Assessments Type Assessment Date No Information Patient Care Teams Name Effective Dates (start - stop) Status Members No Information
== END 2024-06-16 12:17 | disposition home or self-care (01) ==
PROVIDERS: PCP Family Medicine; Visit Provider Family Medicine
DX: E11.9 Type 2 diabetes mellitus without complications (principal); M54.12 Radiculopathy, cervical region; E78.5 Hyperlipidemia, unspecified; Z13.9 Encounter for screening, unspecified

== ENCOUNTER → 2024-06-16 11:13 | Outpatient (BNVA) | payer OTHER, SELFPAY | PROVIDERS: PCP Family Medicine; Visit Provider Family Medicine | DX: Z00.00 Encounter for general adult medical examination without abnormal findings (principal); E11.9 Type 2 diabetes mellitus without complications; M54.12 Radiculopathy, cervical region; E78.5 Hyperlipidemia, unspecified; M25.519 Pain in unspecified shoulder; Z79.84 Long term (current) use of oral hypoglycemic drugs; Z79.899 Other long term (current) drug therapy | CPT/HCPCS: 83036; 99212 ==

== ENCOUNTER 2024-10-11 08:24 | Outpatient (REF) | payer OTHER, SELFPAY ==
--- OUTSIDE RECORDS SUMMARY | 2024-10-11 08:42 | XMS_ITS | Clinical Summary ---
Author Organization [facility] Address [address] [place] [address] Care Team Providers Care Doughnut Machine Operator Helper Name Role Phone Unavailable Primary Care Provider Unavailabl e Social History Tobacco Use Types Packs/Day Years Used Date Smoking Tobacco: Never Assessed Sex and Gender Information Value Date Recorded Sex Assigned at Not on file Legal Sex Male 12:33 PM EST Gender Identity Not on file Sexual Orientation Not on file Last Filed Vital Signs Vital Sign Reading Time Taken Comments Blood Pressure 130/80 2022 1:49 PM EST Pulse 80 2022 1:49 PM EST Temperature - - Respiratory Rate - - Oxygen Saturation 98% 2022 1:49 PM EST Inhaled Oxygen Concentration - - Weight 97.5 kg (215 lb) 2022 1:49 PM EST Height 184 cm (6' 0.44 ) 2022 1:49 PM EST Body Mass Index 28.81 2022 1:49 PM EST Plan of Treatment Health Maintenance Due Date Last Done Comments Hepatitis C Screening 1972 DTaP/Tdap/Td (1 - Tdap) 1990 Hep B (1 of 3 - 19+ 3-dose series) 1991 Pneumococcal 50+ years (1 of 1 - PCV) 2022 Zoster (Shingrix) (1 of 2) 2022 COVID-19 Vaccine ( - 2023-2 5 season) 2024 Influenza (Season Ended) 2025 HPV Vaccine Aged Out No longer eligi ble based on patient's age to complete this topic Hep A Aged Out No longer eligi ble based on patient's age to complete this topic Hib Aged Out No longer eligi ble based on patient's age to complete this topic Meningococcal ACWY Aged Out No longer eligible based on patient's age to complete this topic
--- OUTSIDE RECORDS SUMMARY | 2024-10-11 08:42 | XMS_ITS | Continuity of Care Document ---
Author Organization Kyrie Masterson [facility] Address [address] [place] [address] Phone Care Team Providers Care Tutoring Assistant Name Role Phone Unavailable Unavailable Unavailable Advance Directives Directive Yes / No Effective Date File Name No Information Encounters Encounter Description Practice Location Reason(s) For Visit Diagnoses Date Provider Providers Copied on Encounter dali Cabral [facility], [address] [place] [address],[address], [place], [place], [id number], [place] tel:[phone] [facility] No Information No Information Family History Family Member Type Diagnosis Age At Onset No Information Payers Payer name Insurance type Covered constitution party ID Authoriza tion(s) No Information Social [...]
[2024-10-11 10:03] LABS: Alanine Aminotransferase 26 U/L (0-40); Albumin Level 4.3 g/dL (3.5-5.0); Alkaline Phosphatase 66 U/L (39-117); Anion Gap 13 (12-20); Aspartate Amino Transferase 27 U/L (5-37); Bilirubin Total 0.5 mg/dL (0.0-1.0); Blood Urea Nitrogen 19 mg/dL (9-16); Calcium 9.3 mg/dL (8.4-10.2); Carbon Dioxide 23 mmol/L (22-29); Chloride 110 mmol/L (96-108); Cholesterol 155 mg/dL (<200); Estimated Glomerular Filt Rate > 60; Glucose Fasting 132 mg/dL (60-99); Potassium 3.7 mmol/L (3.3-5.1); Sodium 142 mmol/L (135-145); Total Protein 7.4 g/dL (6.5-8.0); Triglycerides 92 mg/dL (<150)
[2024-10-11 10:20] LABS: Creatinine Urine 222.23 mg/dL; Microalbum/Creatinine Ratio Ur 13.9 ug/mg cr (<30)
[2024-10-11 10:23] LABS: HDL Cholesterol 41 mg/dL (>40); LDL Cholesterol Calculated 96 mg/dL (<100)
== END 2024-10-11 08:25 | disposition home or self-care (01) ==
LOC: HO.LAB 08:24
PROVIDERS: PCP Family Medicine; Visit Provider Family Medicine
DX: Z00.00 Encounter for general adult medical examination without abnormal findings (principal); E11.9 Type 2 diabetes mellitus without complications; I10 Essential (primary) hypertension; E78.5 Hyperlipidemia, unspecified
CPT/HCPCS: 36415; 80053; 80061; 82043; 82570

== ENCOUNTER 2024-10-12 15:38 | Outpatient (AMB) | payer OTHER, SELFPAY ==
--- NOTE | 2024-10-12 15:43 | A.OFFPC_ITS ---
Vital Signs 10/12/24 15:52 Height 6 ft Weight 212 lb 6 oz BMI 28.8 BP 132/62 Blood Pressure Location Rt brachial Position Sitting Respiration 16 Pulse 98 Pulse Source Pulse Oximeter Temp 97.7 F Temp Source Oral Pulse Oximetry (%) 97 Oxygen Delivery Method Room Air Intake Visit Reasons: f/u diabetes Allergies No Known Allergies Allergy (Verified 10/12/24 15:50) Medication List - Last Reconciled 10/12/24 by Doyle Muir MD blood sugar diagnostic (FreeStyle Lite Strips) DX: E11.9, test blood sugar 2 times a day, 90 days blood-glucose meter (FreeStyle Lite Meter kit) DX: E11.9, test blood sugar 2 ti mes a day, duration 999 days dulaglutide 3 mg (0.5 mL) subcut QWEEK 28 days lancets (FreeStyle Lancets) T test Blood sugar twice a day As directed, 90 days metformin 1,000 mg (2 x 500 mg) PO BIDWMEAL 90 days naproxen 500 mg PO BID PRN 30 days rosuvastatin 40 mg PO DAILY 90 days Tobacco use date assessed: 10/12/24 Dental Screening Dental Screen Date: 10/12/24 Did you have a dental visit in the last 12 months?: No Did you have a dental problem in the last 6 months where you did not have access to dental care?: No Was dental information given to patient?: No HPI f/u diabetes HPI Details 54 y/o male presents to f/u diabetes. Had increased his Trulicity and continued metformin. Had referred to nurse navigator for diabetic teaching. A1c in June 8.4%. A1c today 10/12/24 is 7.1%. Also following up on R neck and shoulder radiculopathy/radiculitis. Had ordered some physical therapy. They note no one has contacted him yet. Labs drawn 10/11/24. Reviewed labs with pt. Fasting glucose 132. Triglycerides 92. TC 155. LDL 96. HDL 41. He is on rosuvastatin 40mg daily. Pt notes ongoing smoking. HPI Comments History of Present Illness Details Documentation assistance for Doyle Muir MD, was provided by Ernie Rosenthal,? Interventional Radiology Rn on 10/12/2024 at 3:50 PM EST. I, Dr. Muir, have read, observed, and verified documentation. 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 Cognitive needs: No Hearing needs: No Vision needs: Yes (patient wears glasses) Questionnaire Thrive Questionnaire Date Thrive assessed: 06/16/24 I am a: Patient What is your living situation today?: I have a steady place to live Within the past 12 months, did the food you bought not last and you didn't have the money to get more?: Never true Within the past 12 months, did you worry whether your food would run out before you got money to buy more?: Never true Do you have trouble paying for medicines?: No Do you have trouble getting transportation to medical appointments?: No Do you have trouble paying your heating and electricity bill?: No Do you have trouble taking care of your child, family member or friend?: No Do you have trouble with day-to-day activities such as bathing, preparing meals, shopping, managing finances, etc.?: No Are you currently unemployed and looking for a job?: No Are you interested in more education?: No Please select the resources that you would like help with: Utilities Currently or been in a relationship where the following occur: No concerns reported THRIVE Score: 0 ESEQUIEL-7 AMB Questionnaire ESEQUIEL-7 Date ESEQUIEL - 7 assessed: 10/12/24 Source: Developed by Drs. Yang Greenwood, Belkys Lorenzo, Agustín Sheikh and colleagues, with an educational saurabh from [employer]. Review of Systems Const Denies chills, Denies fatigue, Denies fever(s), Denies headache(s) and Denies weakness ENT Denies dizziness and Denies headache(s) Card Denies dyspnea Resp Denies cough, Denies dyspnea, Denies wheezing and Denies other (shortness of breath) Musc Denies numbness and Denies tingling Neuro Denies dizziness, Denies headache(s), Denies numbness, Denies tingling and Denies weakness Psych Denies anxiety and Denies depression Endo Denies fatigue Aller/Immun Denies wheezing Physical exam (Primary Care) Vital Signs: Last Vital Signs Temp 97.7 F 10/12/24 15:52 Pulse 98 10/12/24 15:52 Resp 16 10/12/24 15:52 BP 132/62 10/12/24 15:52 Pulse Ox 97 10/12/24 15:52 Oxygen Delivery Method Room Air 10/12/24 15:52 BMI result Body Mass Index 28.8 Tobacco/Smoking Status: Tobacco use Status Tobacco use date assessed 10/12/24 10/12/24 15:58 Patient Tobacco Use Status Former Tobacco user 10/12/24 15:45 e-Cigarette/Vaping Use Currently Using 10/12/24 15:45 Thrive Assessment: Date of Thrive Assessment Date Thrive assessed 06/16/24 10/12/24 15:45 Currently or been in a relationship where the following occur: No concerns reported Const General: well developed; No acute distress Nutritional Appearance: well nourished Orientation/consciousness: patient oriented x3 HENMT Head: Yes normocephalic and Yes atraumatic Eyes General: appearance normal, both eyes and all related structures Pupils: Equal, round and reactive pupils present EOM: EOMs intact bilaterally Resp Effort & Inspection: normal respiratory effort Auscultation: clear to auscultation bilaterally Cardio Rate: regular rate Rhythm: regular rhythm Heart sounds: S1 normal heart sound present, S2 normal heart sound present, no gallops, no murmurs and no rubs Neuro General: patient oriented x3 and gait normal Cranial nerves: Yes Equal, round and reactive pupils present Psych Affect: normal affect Coding Level of Care Code Est Pt Level 4 (66225) Diagnoses Diabetes E11.9 Hyperlipidemia E78.5 Cervical radiculopathy M54.12 Shoulder pain M25.519 Smoker F17.200 Assessment & Plan Assessment & Plan (1) Diabetes: Code(s): E11.9 - Type 2 diabetes mellitus without complications Category: Medical Plan: Significant?improvement?in?A1c?now?7.1%,?down?from?8.4%. Goal?is?less?than?7%. He?has?lost?about?20?lb?and?continues?to?work?at?this. Encouraged?diabetic?diet?and?will?ask?the?nurse?navigator?to ?start?diabetic?teaching?as?he?has?not?been?called?yet. Does?not?have?an?linotype machinist apprentice?so?I?will?refer?him?for?a?diabetic?retinal?exam (2) Hyperlipidemia: Code(s): E78.5 - Hyperlipidemia, unspecified Category: Medical Plan: Lipids?all?within?normal?range?on?rosuvastatin Continue?current?medication Continue?weight?loss?and?exercise (3) Cervical radiculopathy: Code(s): M54.12 - Radiculopathy, cervical region Category: Medical (4) Shoulder pain: Code(s): M25.519 - Pain in unspecified shoulder Category: Medical (5) Smoker: Code(s): F17.200 - Nicotine dependence, unspecified, uncomplicated Category: Social Hx Plan Still?has?ongoing?neck?and?shoulder?pain.??He?has?not?gotten?x-rays?done?yet. Recommended?he?get?these?done?and?we?can?follow-up?on?them?at?his?next?visit. He?can?also?start?physical?therapy. Patient?is?smoking/vaping. He?has?used?Chantix?in?the?past?with?success. Will?send?a?script?for?this?again. Orders: Referrals Ophthalmology Referral E11.9 - Type 2 diabetes mellitus without complications Medications: New varenicline tartrate PO PER PKG DIR 28 days 53 ea 0RF F17.200 - Nicotine dependence, unspecified, uncomplicated
[2024-10-12 15:52] VITALS: BP 132/62; PULSE 98; RESP 16; TEMP 36.5; O2SAT 97; BMI 28.8
--- OUTSIDE RECORDS SUMMARY | 2024-10-12 16:24 | XMS_ITS | Clinical Summary ---
Author Organization [facility] Address [address] [place] [address] Care Team Providers Care Joy Loading Machine Operator Name Role Phone Unavailable Primary Care Provider [...]
--- OUTSIDE RECORDS SUMMARY | 2024-10-12 16:24 | XMS_ITS | Continuity of Care Document ---
Author Organization Kyrie Masterson [facility] Address [address] [place] [address] Phone Care Team Providers Care Netting Inspector Name Role Phone Unavailable Unavailable Unavailable Advance Directives Directive Yes / No Effective Date File Name No Information Encounters Encounter Description Practice Location Reason(s) For Visit Diagnoses Date Provider Providers Copied on Encounter dali Cabral [facility], [address] [place] [address],[address], [place], [place], [id number], [place] tel:[phone] [facility] No Information No Information Family History [...]
--- OUTSIDE RECORDS SUMMARY | 2024-10-12 16:24 | XMS_ITS | Data Portability ---
Author Organization [facility], [address] Address [address] [place] [address] Assessment No assessment recorded. Plan of Treatment Reminders Order Date Submit Date Provider Last Modified By Organization Details Last Modified Time Details Appointments None recorde d. Lab glucose , fingers tick, blood 024 06/10/19 [email or web address] [facility], [address] [place], [address], 15:59:13 Referral None recorde d. Procedures None recorde d. Surgeries None recorde d. Imaging None recorde d. Medication Orders None recorde d. Patient TargetsNo targets recorded. Patient InstructionsNo instructions recorded. Reason for Referral None Reported. Results Created Date Observation Date Name Description Value Unit Range Abnormal Flag Note LastModifiedBy Organization Detail LastModifiedTime 06/10/19 24 06/10/2023 gluco se, finge rstic k, blood blood sugar - non fasting 120 mg/dL 80-140 = normal Not Available [address] [place], [address], 06/10/2023 15:19:41 06/10/19 24 06/10/2023 gluco se, finge rstic k, blood blood sugar - fasting mg/dL 80-125 = normal Not Available [facility] [address] [place], [address], 06/10/2023 15:19:41 Result Notes None recorded. Problems Name Problem SNOMED Code Status Onset Date Resolution Date Notes Provider Name and Address Organization Details Recorded Time Diabetes mellitus 96194792 Active 2022 YARICHRIS SCHAFERCORRINA miller, PA - [facility] 3 08:37:53 Hypertensive disorder 09604333 Active 2022 YARI SCHAFERCORRINA null, PA - [facility] 3 08:38:09 Hyperlipidemia 08097236 Active 2022 YARI SCHAFERCORRINA null, PA - [facility] 3 08:38:18 Glycosuria 64308240 Active 2023 MIRIAN BUSH null, PA - [facility] 4 15:20:07 Problem Notes None recorded. Procedures Surgical History Date Name Laterality Status Provider Name and Address Organization Details Recorded Time 06/10/19 24 OC-DOT PHYSICAL completed Amaris Dorman PA - [facility] 06/10/2023 14:41:39 12/25/19 23 Suture Removal completed Jenifer Palacios MD [address] [place], [place] [address], [address] PA - [facility] 12/24/2022 09:04:37 10/01/19 23 OC-Direct observation Template completed TAMRA CABRERA PA - [facility] 09/30/2022 10:27:11 10/01/19 23 OC-UDS Send Out Template DOT completed TAMRA CABRERA PA - [facility] 09/30/2022 10:28:43 procedure on shoulder completed YARI LIM PA - [facility] 12/24/2022 08:39:11 Imaging Results None recorded. Procedure Notes None recorded. Medical Equipment None Reported. Allergies No known drug allergies Medications Name Sig Start Date Stop Date Status Note LastModified by Organization Details LastModified Time metformin 500 mg tablet TAKE 2 TABLETS BY MOUTH TWICE DAILY WITH BREAKFAST AND DINNER active Not Available Not Available No t Available atorvastati n 80 mg tablet active Not Available Not Available Not Available glipizide 10 mg tablet active Not Available Not Available Not Available lisinopril 10 mg tablet active Not Available Not Available Not Available fluticasone propionate 50 mcg/actuati on nasal spray,suspe nsion INSTILL 2 SPRAYS IN EACH NOSTRIL EVERY DAY 12/24 completed Not Available Not Available Not Available rosuvastati n 40 mg tablet active Not Available Not Available Not Available FreeStyle Lite Strips USE TO TEST BLOOD SUGAR TWICE DAILY active Not Available Not Available No t Available OneTouch Delica Plus Lancet 30 gauge USE TO TEST BLOOD SUGAR TWICE DAILY active Not Available Not Available No t Available BinaxNOW COVID-19 Ag Self Test kit TEST DIRECTED TODAY 12/24 completed Not Available Not Available Not Available Vitals Date Recorded Body height Body mass index (BMI) Body weight Oxygen saturation Oxygen saturation in Arterial blood by Pulse oximetry Heart rate Respiratory rate Body temperature Systolic blood pressure Diastolic blood pressure Provider Name and Address Organization Details Last Updated DateTime 180.34 cm 32.1 kg/m2 715304. 25 g 98 % 98 % 93 /min 18 /min 98.3 [degF] 150 mm[Hg] 93 mm[Hg] YARI GONSALES - [employer] 08:42:16 Social History Question Answer Notes LastModified by [employer] ion Details LastModified Time Tobacco Smoking Status Never Smoker YARI miller PA [facility] 12/24/2022 08:38:51 What Is Your Level Of Alcohol Consumption? Occasional Information not available 12/24/2022 Are You Currently Employed? Yes Information not available 12/24/2022 Have You Had Direct Contact, Or Contact During Intimacy, With Monkeypox Rash, Scabs, Or Body Fluids From A Person With Monkeypox? No Information not available 12/24/2022 Do You Use Any Illicit Or Recreational Drugs? No Information not available 12/24/2022 Have You Recently Traveled Abroad? No Information not available 12/24/2022 Do You Or Have You Ever Used Any Other Forms Of Tobacco Or Nicotine? Yes Information not available 12/24/2022 Sex: Unknown Functional Status None recorded. Mental Status None recorded. Family History Relationship Description Onset Age of this Age Resolved Age Notes LastModified by Organization Details LastModified Time Father No current problems or disability Not available 12/06 08:38:22 Mother No current problems or disability Not available 12/06 08:38:22 Medical History No medical history recorded. Past Encounters Encounter ID Performer Location Encounter Start Date Encounter Closed Date Diagnosis/Indication Diagnosis SNOMED-CT Code Diagnosis ICD10 Code Diagnosis [place] [id number] [place] [address] [place] [address] 09/30/2022 10:04:09 09/30/2022 10:32:40 History and physical examination, occupation 353123982 Z02.1 [id number] Jenifer Palacios MD [address] [facility] [address] [place] [address] 12/24/2022 08:11:13 12/24/2022 09:05:20 Removal of suture 76516709 Z48.02 6 sutures removed with no complicati ons. 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 Stop Bang Score #2. The patient use to be treated for DM 2 - but has been off medication since September. Random stick here was only 120 - ok to certify today. Advised patient that next year - needs to bring letter from PCP to be safe in case there is elevated glucose in urine and stick again - because may not be able to certify with those levels. Borderline right now. Physical examination 588 0005 Z02.4 Glycosuria 86930010 R81 Health Concerns Section Related Observation LastModified by Organization Detai ls LastModified Time None Recorded Concern Status LastModified by Organization Details LastModified Time None Recorded Advance Directives Directive None Recorded Payers Insurance Date Sequence Insurance Name Policy Number Policy [place] Covered Member ID Castle Member ID Guarantor Name 06/10/2023 PAY AT TOS [place] Natons EDIN MERI EDIN MERI Ramosfus Rushins 06/10/2023 OC-PAY AT TIME OF SERVICE 2022 Edin Rushins EDIN RUSHINS EDIN RUSHINS Edin Rushins 09/30/2022 OC-ESCREEN Escreen ADP [facility] STAGE DIRECTOR Lancaster Rushins 06/10/2023 1 [facility] - TOGETHER (MEDICAID HMO) [id number] Edin I Rushins [id number] Lancaster Rushins 06/10/2023 1 [place] [facility] Lancaster Rushins [id number] Lancaster Rushins 06/10/2023 1 [facility] [id number] Lancaster I Rushins [id number] Lancaster Rushins Notes Date Note Type Note Provider Name and Address Organization Details Recorded Time 12/24/2022 text/html UC Wound/Laceration Reported bypatient.Qualit y:not bleeding; no undermining; no cellulitis; no drainage; no eschar Severity:mild Duration:10 days Onset/Timing:gokul e of initial injury: 10 days ago Associated Symptoms:no fever; no bruising; no numbness; no tinglingNotes:de creased sensation at finger tip Jenifer Palacios MD [address] [place], [address], PA - [facility] 12/24/2022 09:06:58
== END 2024-10-12 16:28 | disposition home or self-care (01) ==
LOC: HO.HMCFM 15:39
PROVIDERS: PCP Family Medicine; Visit Provider Family Medicine
DX: E11.9 Type 2 diabetes mellitus without complications (principal); E78.5 Hyperlipidemia, unspecified; M54.12 Radiculopathy, cervical region; M25.519 Pain in unspecified shoulder; F17.200 Nicotine dependence, unspecified, uncomplicated

== ENCOUNTER → 2024-10-12 15:38 | Outpatient (BNVA) | payer OTHER, SELFPAY | PROVIDERS: PCP Family Medicine; Visit Provider Family Medicine | DX: E11.9 Type 2 diabetes mellitus without complications (principal); E78.5 Hyperlipidemia, unspecified; M54.12 Radiculopathy, cervical region; M25.519 Pain in unspecified shoulder; F17.200 Nicotine dependence, unspecified, uncomplicated; Z79.84 Long term (current) use of oral hypoglycemic drugs; Z79.899 Other long term (current) drug therapy | CPT/HCPCS: 99212 ==

== ENCOUNTER 2024-10-25 11:24 | Outpatient (REF) | payer OTHER, SELFPAY ==
--- NOTE | ~2024-10-25 | XR_ITS ---
EXAMINATION: XR CERVICAL SPINE CLINICAL INFORMATION: M54.12 - Radiculopathy, cervical region COMPARISON: None available. TECHNIQUE: 3 views of the cervical spine were obtained. FINDINGS: Marginal osteophyte formation and endplate sclerosis and decreased intervertebral disc height C5-6. Calcification in the anterior intervertebral disc C4-5 and C5-6 level. No gross malalignment. No lytic or blastic lesions. XR/XR cervical spine 2V IMPRESSION: Cervical spondylosis C5-6 and to a lesser extent C4-5. Electronically signed by: Kelechi Vieira MD 10/25/2024 12:48 PM EDT
--- NOTE | ~2024-10-25 | XR_ITS ---
EXAMINATION: XR SHOULDER, RIGHT CLINICAL INFORMATION: M25.519 - Pain in unspecified shoulder COMPARISON: June 10, 2023. TECHNIQUE: AP external rotation, Grashey, scapular Y, and axillary views of the right shoulder. FINDINGS: No acute cortical disruption or malalignment. No lytic or blastic lesions. There is preservation of the joint spaces. XR/XR shoulder RT min 2V IMPRESSION: No acute fracture or dislocation. Negative x-ray. Electronically signed by: Kelechi Vieira MD 10/25/2024 12:47 PM EDT
--- OUTSIDE RECORDS SUMMARY | 2024-10-25 12:41 | XMS_ITS | Continuity of Care Document ---
Author Organization [facility] Address [address] [place] [address] Phone Care Team Providers Care Surfboard Maker Name Role Phone Unavailable Unavailable Unavailable Advance Directives Directive Yes / No Effective Date File Name No Information Encounters Encounter Description Practice Location Reason(s) For Visit Diagnoses Date Provider Providers Copied on Encounter dali Cabral [facility], [address] [place] [address],[address], [place], [place], [id number], [place] tel:[phone] [facility] No Information No Information Family History Family Member Type Diagnosis Age At Onset No Information Payers Payer name Insurance type Covered green party ID Authoriza tion(s) No Information Social [...]
--- OUTSIDE RECORDS SUMMARY | 2024-10-25 12:42 | XMS_ITS | Data Portability ---
Author Organization [facility], [address] Address [address] [place] [address] Assessment No assessment recorded. Plan of Treatment Reminders Order Date Submit Date Provider Last Modified By Organization Details Last Modified Time Details Appointments None recorde d. Lab glucose , fingers tick, blood 024 06/10/19 [id number] [facility] [address] [place], [address], 15:59:13 Referral None recorde d. Procedures None [...] 120 mg/dL 80-140 = normal Not Available [address] [place], [address], 06/10/2023 15:19:41 06/10/19 24 06/10/2023 gluco se, finge rstic k, blood blood sugar - fasting mg/dL 80-125 = normal Not Available [facility] [address] [place], [address], 06/10/2023 15:19:41 Result Notes None recorded. Problems Name Problem SNOMED Code Status Onset Date Resolution Date Notes Provider Name and Address Organization Details Recorded Time Diabetes mellitus 21436351 Active 2022 YARICHRIS SCHAFERCORRINA miller, PA - [facility] 3 08:37:53 Hypertensive disorder 23231642 Active 2022 YARI SCHAFERCORRINA null, PA - [facility] 3 08:38:09 Hyperlipidemia 30185660 Active 2022 YARI SCHAFERCORRINA null, PA - [facility] 3 08:38:18 Glycosuria 71906006 Active 2023 MIRIAN BUSH null, PA - [facility] 4 15:20:07 Problem Notes None recorded. Procedures Surgical History Date Name Laterality Status Provider Name and Address Organization Details Recorded Time 06/10/19 24 OC-DOT PHYSICAL completed Amaris Dorman PA - [facility] 06/10/2023 14:41:39 12/25/19 23 Suture Removal completed Jenifer Palacios MD [address] [place], [place] [address], [address] PA - [facility] 12/24/2022 09:04:37 10/01/19 [...] Last Updated DateTime 180.34 cm 32.1 kg/m2 849117. 25 g 98 % 98 % 93 /min 18 /min 98.3 [degF] 150 mm[Hg] 93 mm[Hg] YARI GONSALES - [employer] 08:42:16 Social History Question Answer Notes LastModified by [email or web address] Details LastModified Time Tobacco Smoking Status Never Smoker [facility] 12/24/2022 08:38:51 Have You Had Direct Contact, Or Contact During Intimacy, With Monkeypox Rash, Scabs, Or Body Fluids From A Person With Monkeypox? No Information not available 12/24/2022 Have You Recently Traveled Abroad? No Information not available 12/24/2022 Sex: Unknown Functional Status Question Answer Note LastModified by [email or web address] Details LastModified Time Do you use any illicit or recreational drugs? No Information not available 12/24/2022 Do you or have you ever used any other forms of tobacco or nicotine? Yes Information not available 12/24/2022 What is your level of alcohol consumption? Occasional Information not available 12/24/2022 Are you currently employed? Yes Information not available 12/24/2022 Mental Status None recorded. Family History Relationship [...] SNOMED-CT Code Diagnosis ICD10 Code Diagnosis Note [id number] Samy Burleson, MANAGER PORTABLE [address] [place] [address] 09/30/2022 10:04:09 09/30/2022 10:32:40 History and physical examination, occupation 419140754 Z02.1 [id number] Jenifer Palacios MD [address] [place] [address] 12/24/2022 08:11:13 12/24/2022 09:05:20 Removal of suture 48685445 Z48.02 6 sutures removed with no complicati ons. 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 Physical examination 588 0005 Z02.4 Glycosuria 08240723 R81 Health Concerns Section Related Observation LastModified by Organization Detai ls LastModified Time None Recorded Concern Status LastModified by Organization Details LastModified Time None Recorded Advance Directives Directive None Recorded Payers Insurance Date Sequence Insurance Name Policy Number Policy [place] Covered Member ID Castle Member ID Guarantor Name 06/10/2023 PAY AT [facility] Edin Rushins EDIN RUSHINS EDIN RUSHINS Abernathy Rushins 06/10/2023 OC-PAY AT TIME OF SERVICE 2022 Abernathy Rushins EDIN RUSHINS EDIN RUSHINS Edin Rushins 09/30/2022 OC-ESCREEN Escreen ADP [facility] DIRECT CUSTOMER SERVICE REPRESENTATIVE Abernathy Rushins 06/10/2023 1 [facility] - TOGETHER (MEDICAID HMO) [id number] Edin I Rushins [id number] Abernathy Rushins 06/10/2023 1 [place] [facility] Edin Rushins [id number] Edin Rushins 06/10/2023 1 [facility] [id number] Abernathy I Rushins [id number] Abernathy Rushins Notes Date Note Type Note Provider Name and Address Organization Details Recorded Time 12/24/2022 text/html UC Wound/Laceration Reported bypatient.Qualit y:not bleeding; no undermining; no cellulitis; no drainage; no eschar Severity:mild Duration:10 days Onset/Timing:gokul e of initial injury: 10 days ago Associated Symptoms:no fever; no bruising; no numbness; no tinglingNotes:de creased sensation at finger tip Jenifer Palacios MD [facility] [place], [address], PA - [facility] 12/24/2022 09:06:58
--- OUTSIDE RECORDS SUMMARY | 2024-10-25 12:42 | XMS_ITS | Clinical Summary ---
Author Organization [facility] Address [address] [place] [address] Care Team Providers Care Ophthalmic Lens Inspector Name Role Phone Unavailable Primary Care Provider [...] ( - 2023-2 5 season) 2024 Influenza (#1) 2024 HPV Vaccine Aged Out No longer eligi [...]
== END 2024-10-25 11:25 | disposition home or self-care (01) ==
LOC: HO.HMGCX 11:24
PROVIDERS: PCP Family Medicine; Visit Provider Family Medicine
DX: M54.12 Radiculopathy, cervical region (principal); M25.511 Pain in right shoulder
CPT/HCPCS: 72040; 73030

== ENCOUNTER → 2024-10-25 11:31 | Outpatient (BNV) | payer OTHER, SELFPAY | PROVIDERS: PCP Family Medicine; Visit Provider Radiology Diagnostic Radiology | DX: M47.812 Spondylosis without myelopathy or radiculopathy, cervical region (principal); M25.511 Pain in right shoulder | CPT/HCPCS: 72040; 73030 ==

== ENCOUNTER 2025-03-14 11:07 | Outpatient (AMB) | payer OTHER, SELFPAY ==
--- NOTE | 2025-03-14 11:14 | A.OFFPC_ITS ---
Vital Signs 03/14/25 11:21 Height 6 ft Weight 208 lb 6 oz BMI 28.3 BP 122/72 Blood Pressure Location Rt brachial Position Sitting Respiration 15 Pulse 94 Pulse Source Pulse Oximeter Temp 97.6 F Temp Source Temporal Artery Scan Pulse Oximetry (%) 97 Oxygen Delivery Method Room Air Intake Visit Reasons: f/u diabetes, chronic conditions Intake Note: Edin presents in the office today to follow up to his diabetes and other chronic conditions. Allergies No Known Allergies Allergy (Verified 03/14/25 11:18) Medication List - Last Reconciled 03/14/25 by Doyle Muir MD blood sugar diagnostic (FreeStyle Lite Strips) DX: E11.9, test blood sugar 2 times a day, 90 days blood-glucose meter (FreeStyle Lite Meter kit) DX: E11.9, test blood sugar 2 times a day, duration 999 days lancets (FreeStyle Lancets) T test Blood sugar twice a day As directed, 90 days metformin 1,000 mg (2 x 500 mg) PO BIDWMEAL 90 days naproxen 500 mg PO BID PRN 30 days rosuvastatin 40 mg PO DAILY 90 days semaglutide (Ozempic) 0.25 mg (0.368 mL) subcut QWEEK 28 days Tobacco use date assessed: 03/14/25 Dental Screening Dental Screen Date: 03/14/25 Did you have a dental visit in the last 12 months?: No Did you have a dental problem in the last 6 months where you did not have access to dental care?: No Was dental information given to patient?: Patient declined HPI f/u diabetes, chronic conditions HPI Details 54 y/o male presents to f/u diabetes, ch ronic conditions. A1c today 03/14/25 7.4%. He is on metformin 1000mg b.i.d, Ozempic 0.25mg weekly. Shoulder x-ray 10/25/24 negative. Cervical spine xray 10/25/24 showed cervical spondylosis C5-6 and to a lesser extent C4-5. [facility] Medical History Diabetes High cholesterol Tuberculosis Surgical History History of toe surgery H/O shoulder surgery Family History Father High blood pressure Arterial stent thrombosis Mother Leaky heart valve High blood pressure Social History (Updated 03/14/25 @ 11:20 by Mandy Sommers CMA) Housing: House Alcohol intake: current Alcohol intake frequency: a few times a week Alcohol type: beer Patient Tobacco Use Status: Former Tobacco user e-Cigarette/Vaping Use: Currently Using Second Hand Smoke Exposure: No service: No Current occupational status: employed 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 Cognitive needs: No Hearing needs: No Vision needs: Yes (patient wears glasses) Questionnaire Thrive Questionnaire Date Thrive assessed: 06/16/24 I am a: Patient What is your living situation today?: I have a steady place to live Within the past 12 months, did the food you bought not last and you didn't have the money to get more?: Never true Within the past 12 months, did you worry whether your food would run out before you got money to buy more?: Never true Do you have trouble paying for medicines?: No Do you have trouble getting transportation to medical appointments?: No Do you have trouble paying your heating and electricity bill?: No Do you have trouble taking care of your child, family member or friend?: No Do you have trouble with day-to-day activities such as bathing, preparing meals, shopping, managing finances, etc.?: No Are you currently unemployed and looking for a job?: No Are you interested in more education?: No Please select the resources that you would like help with: Utilities Currently or been in a relationship where the following occur: No concerns r eported THRIVE Score: 0 ESEQUIEL-7 AMB Questionnaire ESEQUIEL-7 Date ESEQUIEL - 7 assessed: 10/12/24 Source: Developed by Drs. Yang Greenwood, Belkys Lorenzo, Agustín Sheikh and colleagues, with an educational saurabh from [employer]. Physical exam (Primary Care) Vital Signs: Last Vital Signs Temp 97.6 F 03/14/25 11:21 Pulse 94 03/14/25 11:21 Resp 15 03/14/25 11:21 BP 122/72 03/14/25 11:21 Pulse Ox 97 03/14/25 11:21 Oxygen Delivery Method Room Air 03/14/25 11:21 BMI result Body Mass Index 28.3 Tobacco/Smoking Status: Tobacco use Status Tobacco use date assessed 03/14/25 03/14/25 11:24 Patient Tobacco Use Status Former Tobacco user 03/14/25 11:20 e-Cigarette/Vaping Use Currently Using 03/14/25 11:20 Thrive Assessment: Date of Thrive Assessment Date Thrive assessed 06/16/24 03/14/25 11:16 Currently or been in a relationship where the following occur: No concerns reported Results AMB Hemoglobin A1c 2 AMB Hemoglobin A1c 7.4 % Last Edit by Mandy Sommers CMA on 03/14/25 11:42 Results Reviewed Results Reviewed: Laboratory Last Values Hgb A1c (Clinic) 7.4 % (4.0-6.0) H 03/14/25 11:26 Coding Level of Care Code Est Pt Level 4 (13478) Diagnoses Diabetes E11.9 Cervical radiculopathy M54.12 Shoulder pain M25.519 Obesity E66.9 Assessment & Plan Assessment & Plan (1) Diabetes: Code(s): E11.9 - Type 2 diabetes mellitus without complications Category: Medical Plan: A1c was nearly at goal at last visit and has climbed from 7.1% to 7.4%. Goal is less than 7.0% He is taking metformin and Ozempic as prescribed Will increase Ozempic from 0.25 mg weekly to 0.5 mg weekly. Continue metformin as prescribed. He did not tolerate glipizide. 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 He would like to wait until after the holidays because he will not have much time until then. Will readdress June. Up-to-date with eye exam - no retinopathy (2) Cervical radiculopathy: Code(s): M54.12 - Radiculopathy, cervical region Category: Medical Plan: Xrays showed Significant spondylosis He had had some radiculopathy in to right shoulder and arm. Had given him a script for naproxen which has resolved his symptoms. He still would benefit from physical therapy and I will ask the office to help get him scheduled Continue naproxen - can take holidays from medication when doing well. (3) Shoulder pain: Code(s): M25.519 - Pain in unspecified shoulder Category: Medical Plan: as above (4) Obesity: Code(s): E66.9 - Obesity, unspecified Category: Medical Plan: As previously mentioned, patient has lost a considerable amount of weight. BMI had been in 60s and BMI now 28. Continue working weight loss Orders: Orders AMB Hemoglobin A1c Today E11.9 - Type 2 diabetes mellitus without complications Hemoglobin A1c Today E11.9 - Type 2 diabetes mellitus without complications, R73.01 - Impaired fasting glucose Lipid Panel Today E78.5 - Hyperlipidemia, unspecified, Z00.00 - Encounter for general adult medical examination without abnormal findings Comprehensive [place]. Panel Fast Today E11.9 - Type 2 diabetes mellitus without complications, Z00.00 - Encounter for general adult medical examination without abnormal findings Medications: Changed From semaglutide (Ozempic) for 4 weeks 0.25 mg (0.368 mL) subcut QWEEK 28 days 1.472 mL 3RF To semaglutide (Ozempic) for 4 weeks 0.5 mg (0.736 mL) subcut QWEEK 3 mL 3RF 28 days Refilled metformin 1000 mg (500 x 2 tabs) at breakfast and dinner 1,000 mg (2 x 500 mg) PO BIDWMEAL 360 tabs 3RF 90 days naproxen 500 mg PO BID PRN 60 tabs 0RF pain 30 days rosuvastatin 40 mg PO DAILY 90 tabs 3RF 90 days
[2025-03-14 11:21] VITALS: BP 122/72; PULSE 94; RESP 15; TEMP 36.4; O2SAT 97; BMI 28.3
--- OUTSIDE RECORDS SUMMARY | 2025-03-14 13:51 | XMS_ITS | Clinical Summary ---
Author Organization [facility] Address [address] [place] [phone] Phone Care Team Providers Care Processing Technician Name Role Phone Reynaldo Wesley MD Primary Care Provider + Allergies Active Allergy Reactions Criticality Noted Date Comments Shellfish Containing Products Swelling 07/19/2019 Eyes and tongue swell Medications nicotine polacrilex (NICORETTE) 2 mg gum Dose: 2 MG; Form: Take 1 GUM; Route: PO; Frequency: Q2H PRN cravings; Directions: Max dose = 10 pieces / day.; Details: Dispense: 60 Gum piece(s); Date: 06/19/2015 06/19/2015 Active nicotine (NICODERM CQ) 21 mg/24 hr Dose: 21 MG/DAY; Form: Take 1 PATCH TD24; Route: TRANSDERMAL ; Frequency: Q24H; Directions: Not available; Details: Dispense: 30 Patch(es); Date: 06/19/2015 06/19/2015 Active atorvastatin (LIPITOR) 80 MG tablet 11/17/2021 Active fluticasone propionate (FLONASE) 50 mcg/actuation nasal spray 11/18/2021 Active glipiZIDE (GLUCOTROL) 10 MG tablet 11/17/2021 Active metFORMIN (GLUCOPHAGE) 500 MG tablet 11/17/2021 Active Active Problems Problem Noted Date Diagnosed Date Type 2 diabetes mellitus wit h hyperglycemia, without long-term current use of insulin 06/22/2020 Moderate alcohol use disorder 06/22/2020 Overview (11/21/2021): AUDIT-C score was 17 June 2020 Vapes nicotine containing substance 06/22/2020 Hypercholesterolemia 07/19/2019 Vitamin D deficiency 07/19/2019 Possible exposure to STD 02/24/2017 Smoking 06/19/2015 Overview (06/28/2016): Smoker; *See attached note in [facility] 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 Not on lianet e 10/02/2022 Are you concerned about learning? Not on file 10/02/2022 No 10/02/2022 No 10/02/2022 Digital Access Answer Date Recorded No 11/03/2022 No 11/03/2022 Reliable internet access at home? Not on file 11/03/2022 Device with a working camera? Not on file Sex and Gender Information Value Date Recorded Sex Assigned at Not on file Legal Sex Male 7:01 PM EST Gender Identity Not on file Sexual Orientation Not on file Last Filed Vital Signs Vital Sign Reading Time Taken Comments Blood Pressure 132/85 06/19/2015 4:25 PM EST Pulse 92 06/19/2015 4:25 PM EST Temperature - - Respiratory Rate - - Oxygen Saturation - - Inhaled Oxygen Concentration - - Weight 93.4 kg (206 lb) 06/19/2015 4:22 PM EST Height 182.9 cm (6') 06/19/2015 4:22 PM EST Body Mass Index 27.94 06/19/2015 4:22 PM EST Plan of Treatment Health Maintenance Due Date Last Done Comments BLOOD PRESSURE 1972 DEPRESSION SCREENING 1984 SMOKING Hx and SMOKELESS TOBACCO SCREENING 1985 PNEUMOCOCCAL VACCINES (50+ years) (1 of 2 - PCV) 1991 CREATININE LEVEL 06/09/2015 06/09/2014, , 10/04/2009 COLOGUARD 2017 COLONOSCOPY 2017 COLORECTAL CANCER SCREENING 2017 FIT TEST 2017 FOBT 2017 SIGMOIDOSCOPY 2017 VIRTUAL COLONOSCOPY 2017 URINE MICROALBUMIN/CREATININE RATIO 11/21/2021 ZOSTER VACCINES (1 of 2) 2022 DIABETIC EYE EXAM 11/21/2022 11/21/2021, , 11/21/2021, Additional history exists HEMOGLOBIN A1C 12/26/2022 06/28/2022, 11/06, 11/15/2021, Additional history exists INFLUENZA VACCINE (#1) 2025 COVID-19 VACCINE (2 - 2024- season) 2025 03/12/2021 Adult Td,Tdap Booster 06/19/2025 06/19/2015 RSV VACCINE (1 - 1-dose 75+ series) 2047 HEPATITIS C SCREENING Completed 07/28/2006 HIV ONE-TIME SCREENING (18-65 YEARS) Completed 07/28/2006 HEPATITIS A VACCINES Aged Out No long er eligible based on patient's age to complete this topic HIB VACCINES Aged Out No longer eligi ble based on patient's age to complete this topic MENINGOCOCCAL VACCINES (ACWY) Aged Out No longer eligible based on patient's age to complete this topic MENINGOCOCCAL VACCINES (B) Aged Out N o longer eligible based on patient's age to complete this topic Medical Devices Not on file Procedures Procedure Name Priority Date/Time Associated Diagnosis Comments HISTORICAL LAB Routine 06/09/2014 1:03 AM EST from Last 3 Months or Most Recently Relevant to Health Maintenance Results * (ABNORMAL) Historical Lab (06/09/2014 1:03 AM EST) BUN 11 6 - 20 MG/DL [facility] CREATININE 1.15 0.6 - 1.3 MG/DL [facility] eGFR >60 60 - 128 ml/min/1. 73 sq meter [facility] Comment: MDRD calculation using age, gender, and IDMS traceable creatinine. If patient is , multiply value by 1.21. Mean GFR = 99 for ages 40 to 49 GLUCOSE 147(Abnorm ally H) 65 - 99 MG/DL [facility] SODIUM 135(Abnorm ally L) 136 - 145 MEQ/L [facility] POTASSIUM 3.4(Abnorm ally L) 3.6 - 5.1 MEQ/L [facility] CHLORIDE 105 101 - 111 MEQ/L [facility] CARBON DIOXIDE 21(Abnorma lly L) 22 - 32 MEQ/L [facility] ANION GAP 9 4 - 14 [facility] 06/09/2014 1:03 AM EST 06/09/2014 1:05 AM EST us Rich Arce MD LAB BLOOD ORDERABLES Final Result Performing Organization Address City/State/[facility] Co de Phone Number [address] [id number], [facility] from Last 3 Months or Most Recently Relevant to Health Maintenance Insurance [employer] [facility] [employer] [facility] [employer] [employer] Care Teams Processing Technician Relationship Specialty Start Date End Date Reynaldo Wesley MD [address] [facility] [place] [id number] PCP - General Internal Medicine 11/18/21 Additional Source Comments The information contained in this document represents components of the legal health record. It is not the complete legal health record.[facility]
--- OUTSIDE RECORDS SUMMARY | 2025-03-14 13:51 | XMS_ITS | Clinical Summary ---
Author Organization [facility] Address [address] [place] [address] Care Team Providers Care Career Resource Specialist Name Role Phone Unavailable Primary Care Provider [...] of 2) 2022 COVID-19 Vaccine ( - 2024-2 6 season) 2025 Influenza (#1) 2025 HPV Vaccine (No Doses Required) Completed Hep A Aged Out No longer eligi ble based on patient's age to complete this topic Hib Aged Out No longer eligi ble based on patient's age to complete this topic Meningococcal ACWY Aged Out No longer eligible based on patient's age to complete this topic
== END 2025-03-14 11:59 | disposition home or self-care (01) ==
LOC: HO.HMCFM 11:08
PROVIDERS: PCP Family Medicine; Visit Provider Family Medicine
DX: E11.9 Type 2 diabetes mellitus without complications (principal); M25.511 Pain in right shoulder; E66.9 Obesity, unspecified; Z68.28 Body mass index [BMI] 28.0-28.9, adult; M54.12 Radiculopathy, cervical region

== ENCOUNTER → 2025-03-14 11:07 | Outpatient (BNVA) | payer OTHER, SELFPAY | PROVIDERS: PCP Family Medicine; Visit Provider Family Medicine | DX: E11.9 Type 2 diabetes mellitus without complications (principal); M54.12 Radiculopathy, cervical region; Z79.899 Other long term (current) drug therapy | CPT/HCPCS: 83036; 99212 ==